=== PATIENT | male | born 1950 ===

== ENCOUNTER 2019-03-11 06:14 | Day surgery (SDC) | payer MEDICARE ==
[~2019-03-11] VITALS: Ht 172.7 cm; Wt 86.7 kg
[~2019-03-11 06:14] MED LIST: ASPI81CH; Crestor40 MG; METO25ER; OMEPRAZOLE20 MG; Prinivil5 MG; TERA5
== END 2019-03-11 08:52 | disposition home or self-care (01) ==
LOC: ORSCSDS 06:14
PROVIDERS: Student in an Organized Health Care Education/Training Program
PROC: 0DB48ZX Excision of Esophagogastric Junction, Via Natural or Artificial Opening Endoscopic, Diagnostic (ICD-10-PCS; principal; 2019-03-11 08:00)
DX: R13.10 Dysphagia, unspecified (principal); K22.2 Esophageal obstruction; K21.9 Gastro-esophageal reflux disease without esophagitis; I10 Essential (primary) hypertension; K44.9 Diaphragmatic hernia without obstruction or gangrene; I25.10 Atherosclerotic heart disease of native coronary artery without angina pectoris; F32.9 Major depressive disorder, single episode, unspecified; I25.2 Old myocardial infarction; E78.5 Hyperlipidemia, unspecified; Z87.891 Personal history of nicotine dependence; Z79.82 Long term (current) use of aspirin; Z79.899 Other long term (current) drug therapy
CPT/HCPCS: 88305; J0461; J2405; J2704; J7120